=== PATIENT | female | born 1950 | race Caucasian/White ===

== ENCOUNTER 2022-05-31 01:16 | Inpatient (IN) | payer MEDICARE, OTHER ==
[2022-05-31] MEDS ORDERED: Aztreonam 1 GM in Sodium Chloride 0.9% 100 ML IVPB SCH (02:30)
[2022-05-31 02:58] LABS: Hemoglobin 11.8 g/dL (12.0-16.0); Mean Corpuscular HGB CONC 33.8 g/dL (32.0-36.0); Mean Corpuscular Hemoglobin 34.8 pg (27.0-31.0); RBC Distribution Width 11.5 % (11.5-14.5); Red Blood Cell (RBC) Count 3.39 mill/uL (4.20-5.40); White Blood Cell (WBC) Count 9.8 10x3/uL (4.8-10.8)
[2022-05-31] MEDS ORDERED: Morphine 2 MG/ML VIAL SLOW IVP PRN (02:59)
[2022-05-31] MEDS ORDERED: Dextrose 5% in Water 1,000 ML IV PRN (02:59)
[2022-05-31] MEDS ORDERED: Dextrose 50% Abboject 50 ML SYRINGE SLOW IVP PRN (02:59)
[2022-05-31] MEDS ORDERED: Ipratropium/Albuterol 3 ML NEB NEB PRN (02:59)
[2022-05-31] MEDS ORDERED: TETANUS, DIPHTHERIA TOX,ADULT (TDVAX) 0.5 ML VIAL IM ONE (02:59)
[2022-05-31] MEDS ORDERED: Ondansetron PF 4 MG/2 ML Vial IVP PRN (02:59)
[2022-05-31 03:07] LABS: PTT 24.7 sec (22.9-36.1); Prothrombin Time 13.6 sec (12.0-14.7)
[2022-05-31] MEDS ORDERED: Cyclobenzaprine 10 MG TAB PO PRN (03:11)
[2022-05-31 03:28] LABS: #Lymphocytes 1.1 thou/uL (1.20-3.40); #Monocytes 0.7 thou/uL (0.11-0.59); #Neutrophils 7.9 thou/uL (1.40-6.50); %Basophils 0.2 % (0.0-1.0); %Eosinophils 0.3 % (0.0-10.0); %Lymphocytes 11.7 % (21.0-51.0); %Monocytes 6.9 % (0.0-10.0); %Neutrophils 80.9 % (42.0-75.0); MDiff Complete? YES; Macrocytosis SLIGHT = 6-15 cells (100X) (0-5/hpf); Mean Platelet Volume 9.3 fL (7.4-10.4); Platelet Clumps MODERATE; Platelet Count 117 10x3/uL (130-400); Platelet Morphology Comment Appears Decreased
[2022-05-31 03:30] LABS: ALT (SGPT) 13 U/L (8-55); AST (SGOT) 20 U/L (5-34); Albumin 3.5 g/dL (3.4-4.8); Alkaline Phosphatase 73 U/L (40-110); Anion Gap 14 mmol/L (10-20); BUN (Urea Nitrogen) 18 mg/dL (9.8-20.1); Bilirubin, Total 0.4 mg/dL (0.2-1.2); Calc. Creatinine Clearance 0 mL/min (70-130); Calcium 8.8 mg/dL (7.8-10.44); Carbon Dioxide 22 mmol/L (23-31); Chloride 107 mmol/L (98-107); Estimated GFR 48; Globulin 2.5 g/dL (2.4-3.5); Glucose 161 mg/dL (83-110); Sodium 139 mmol/L (136-145)
[2022-05-31 05:48] VITALS: BMI 31.3
[2022-05-31] MEDS: Sodium Chloride 0.9% 1,000 ML IV SCH ×2 (05:55→16:22)
[2022-05-31] MEDS: Acetaminophen 500 MG TAB PO SCH ×3 (05:59→18:25)
[2022-05-31 06:29] LABS: SARS-CoV-2 NAA Rapid Test Not Detected (NotDetected)
[2022-05-31] MEDS ORDERED: Clindamycin/D5W 900 MG in Premix Bag 1 BAG IVPB SCH (07:30)
[2022-05-31] MEDS: Clindamycin/D5W 900 MG in Premix Bag 1 BAG IVPB SCH ×3 (08:45→20:54)
[2022-05-31] MEDS: Famotidine 20 MG TAB PO SCH (08:46)
[2022-05-31] MEDS ORDERED: traMADol HCl 50 MG TAB PO PRN (09:33)
[2022-05-31] MEDS ORDERED: Famotidine/PF 20 mg/2ml Vial ONE (12:51)
[2022-05-31] MEDS ORDERED: fentaNYL PF 100 MCG/2 ML SYRINGE ONE (12:51)
[2022-05-31] MEDS ORDERED: Midazolam HCl 2 mg/2 ml Vial ONE (13:06)
[2022-05-31] MEDS ORDERED: Ketamine 50 MG/ML (10ML VIAL) ONE (13:06)
[2022-05-31] MEDS: traMADol HCl 50 MG TAB PO SCH ×2 (13:12→18:25)
[2022-05-31] MEDS ORDERED: Clindamycin/D5W 900 mg/50 ml Premix Bag ONE (13:14)
[2022-05-31] MEDS ORDERED: Dexamethasone 20 MG/5 ML VIAL ONE (13:15)
[2022-05-31] MEDS ORDERED: Lidocaine 1% PF 5 ML VIAL ONE (13:15)
[2022-05-31] MEDS ORDERED: PROPOFOL 200 MG/20 ML VIAL ONE (13:15)
[2022-05-31] MEDS ORDERED: Metoclopramide HCl 10 MG/2 ML VIAL ONE (13:15)
[2022-05-31] MEDS ORDERED: Ondansetron PF 4 MG/2 ML Vial ONE (13:15)
[2022-05-31] MEDS ORDERED: ePHEDrine 50 MG/ML VIAL ONE (13:15)
[2022-05-31] MEDS ORDERED: SUGAMMADEX SODIUM 200 MG/2 ML VIAL ONE (14:42)
[2022-05-31] MEDS ORDERED: Fentanyl 250 MCG/5 ML VIAL ONE (14:43)
[2022-05-31] MEDS ORDERED: Morphine Sulfate 2 MG/ML SYRINGE SLOW IVP PRN (17:02)
[2022-05-31] MEDS ORDERED: Promethazine HCl 25 MG/ML VIAL IM PRN (17:02)
[2022-05-31] MEDS ORDERED: Meperidine HCl/PF 25 MG/ML VIAL SLOW IVP PRN (17:02)
[2022-05-31] MEDS ORDERED: Ondansetron HCl/PF 4 MG/2 ML Vial IVP PRN (17:02)
[2022-06-01] MEDS: Acetaminophen 500 MG TAB PO SCH ×3 (00:27→11:28)
[2022-06-01] MEDS: Famotidine 20 MG TAB PO SCH (00:27)
[2022-06-01] MEDS: traMADol HCl 50 MG TAB PO SCH ×4 (00:47→17:10)
[2022-06-01] MEDS: Clindamycin/D5W 900 MG in Premix Bag 1 BAG IVPB SCH (05:16)
[2022-06-01 09:39] LABS: #Neutrophils 4.9 thou/uL (1.40-6.50); %Eosinophils 0.1 % (0.0-10.0); %Lymphocytes 14.4 % (21.0-51.0); %Monocytes 14.9 % (0.0-10.0); %Neutrophils 70.5 % (42.0-75.0); Hemoglobin 7.8 g/dL (12.0-16.0); Mean Corpuscular Hemoglobin 34.5 pg (27.0-31.0); Mean Platelet Volume 9.8 fL (7.4-10.4); Platelet Count 51 10x3/uL (130-400); RBC Distribution Width 11.5 % (11.5-14.5); Red Blood Cell (RBC) Count 2.27 mill/uL (4.20-5.40); White Blood Cell (WBC) Count 6.9 10x3/uL (4.8-10.8)
[2022-06-01 09:42] LABS: Anion Gap 11 mmol/L (10-20); BUN (Urea Nitrogen) 12 mg/dL (9.8-20.1); Calc. Creatinine Clearance 110 mL/min (70-130); Calcium 7.9 mg/dL (7.8-10.44); Carbon Dioxide 24 mmol/L (23-31); Chloride 105 mmol/L (98-107); Estimated GFR 84; Glucose 125 mg/dL (83-110); Potassium 4.2 mmol/L (3.5-5.1); Sodium 136 mmol/L (136-145)
[2022-06-01] MEDS ORDERED: Acetaminophen 500 MG TAB PO SCH (17:00)
[2022-06-01] MEDS ORDERED: Acetaminophen 325 MG TAB PO SCH ×2 (17:00→22:30)
[2022-06-01] MEDS: Ferrous Sulfate 325 MG TAB PO SCH (17:04)
[2022-06-01] MEDS: Ascorbic Acid 500 mg Chewable Tablet PO SCH (22:38)
[2022-06-01] MEDS: Acetaminophen 325 MG TAB PO SCH (22:38)
[2022-06-02] MEDS: traMADol HCl 50 MG TAB PO SCH ×4 (01:06→17:04)
[2022-06-02] MEDS: Acetaminophen 325 MG TAB PO SCH ×6 (04:09→21:35)
[2022-06-02 06:32] LABS: #Lymphocytes 1.2 thou/uL (1.20-3.40); #Monocytes 0.9 thou/uL (0.11-0.59); #Neutrophils 5.6 thou/uL (1.40-6.50); %Basophils 0.1 % (0.0-1.0); %Eosinophils 0.4 % (0.0-10.0); %Lymphocytes 15.8 % (21.0-51.0); %Monocytes 11.8 % (0.0-10.0); %Neutrophils 71.8 % (42.0-75.0); Mean Corpuscular HGB CONC 33.6 g/dL (32.0-36.0); Mean Corpuscular Hemoglobin 34.9 pg (27.0-31.0); Platelet Count 86 10x3/uL (130-400); RBC Distribution Width 11.5 % (11.5-14.5); White Blood Cell (WBC) Count 7.8 10x3/uL (4.8-10.8)
[2022-06-02] MEDS: Ascorbic Acid 500 mg Chewable Tablet PO SCH ×2 (10:09→21:35)
[2022-06-02] MEDS: Ferrous Sulfate 325 MG TAB PO SCH ×2 (10:12→17:04)
[2022-06-03] MEDS: traMADol HCl 50 MG TAB PO SCH ×5 (01:29→23:49)
[2022-06-03] MEDS: Acetaminophen 325 MG TAB PO SCH ×6 (03:00→20:37)
[2022-06-03 06:58] LABS: #Eosinphils 0.1 thou/uL (0.0-0.7); #Lymphocytes 1.3 thou/uL (1.20-3.40); #Monocytes 0.9 thou/uL (0.11-0.59); #Neutrophils 6.2 thou/uL (1.40-6.50); %Basophils 0.1 % (0.0-1.0); %Eosinophils 0.8 % (0.0-10.0); %Lymphocytes 15.3 % (21.0-51.0); %Monocytes 10.9 % (0.0-10.0); %Neutrophils 72.9 % (42.0-75.0); Mean Corpuscular Hemoglobin 33.9 pg (27.0-31.0); Mean Platelet Volume 10.4 fL (7.4-10.4); Platelet Count 56 10x3/uL (130-400); RBC Distribution Width 11.3 % (11.5-14.5); Red Blood Cell (RBC) Count 2.07 mill/uL (4.20-5.40); White Blood Cell (WBC) Count 8.5 10x3/uL (4.8-10.8)
[2022-06-03 07:16] LABS: Anion Gap 11 mmol/L (10-20); BUN (Urea Nitrogen) 10 mg/dL (9.8-20.1); Calc. Creatinine Clearance 131 mL/min (70-130); Calcium 8.1 mg/dL (7.8-10.44); Carbon Dioxide 24 mmol/L (23-31); Chloride 99 mmol/L (98-107); Estimated GFR 94; Glucose 109 mg/dL (83-110); Magnesium 1.9 mg/dL (1.6-2.6); Phosphorus 2.3 mg/dL (2.3-4.7); Sodium 130 mmol/L (136-145)
[2022-06-03] MEDS: Ferrous Sulfate 325 MG TAB PO SCH ×2 (08:49→17:55)
[2022-06-03] MEDS: Ascorbic Acid 500 mg Chewable Tablet PO SCH ×2 (08:49→20:39)
[2022-06-04] MEDS: Acetaminophen 325 MG TAB PO SCH ×5 (04:01→18:13)
[2022-06-04] MEDS: traMADol HCl 50 MG TAB PO SCH ×3 (05:39→17:21)
[2022-06-04 06:59] LABS: #Eosinphils 0.1 thou/uL (0.0-0.7); #Lymphocytes 1.5 thou/uL (1.20-3.40); #Monocytes 0.7 thou/uL (0.11-0.59); %Basophils 0.3 % (0.0-1.0); %Eosinophils 1.6 % (0.0-10.0); %Monocytes 9.8 % (0.0-10.0); %Neutrophils 68.3 % (42.0-75.0); Hemoglobin 7.3 g/dL (12.0-16.0); Mean Corpuscular HGB CONC 34.2 g/dL (32.0-36.0); Mean Corpuscular Hemoglobin 35.2 pg (27.0-31.0); Mean Platelet Volume 10.8 fL (7.4-10.4); Platelet Count 77 10x3/uL (130-400); RBC Distribution Width 11.4 % (11.5-14.5); Red Blood Cell (RBC) Count 2.08 mill/uL (4.20-5.40); White Blood Cell (WBC) Count 7.4 10x3/uL (4.8-10.8)
[2022-06-04 07:05] LABS: Anion Gap 13 mmol/L (10-20); BUN (Urea Nitrogen) 11 mg/dL (9.8-20.1); Calc. Creatinine Clearance 133 mL/min (70-130); Calcium 8.1 mg/dL (7.8-10.44); Carbon Dioxide 23 mmol/L (23-31); Chloride 101 mmol/L (98-107); Estimated GFR 95; Glucose 106 mg/dL (83-110); Magnesium 1.9 mg/dL (1.6-2.6); Phosphorus 2.6 mg/dL (2.3-4.7); Potassium 3.9 mmol/L (3.5-5.1); Sodium 133 mmol/L (136-145)
[2022-06-04] MEDS: Ferrous Sulfate 325 MG TAB PO SCH ×2 (09:11→21:00)
[2022-06-04] MEDS: Ascorbic Acid 500 mg Chewable Tablet PO SCH ×2 (09:12→21:00)
[2022-06-05] MEDS: Acetaminophen 325 MG TAB PO SCH ×7 (00:49→22:42)
[2022-06-05] MEDS: traMADol HCl 50 MG TAB PO SCH ×5 (01:05→23:59)
[2022-06-05 06:49] LABS: #Eosinphils 0.2 thou/uL (0.0-0.7); #Lymphocytes 1.5 thou/uL (1.20-3.40); #Monocytes 0.6 thou/uL (0.11-0.59); #Neutrophils 4.1 thou/uL (1.40-6.50); %Basophils 0.3 % (0.0-1.0); %Eosinophils 2.4 % (0.0-10.0); %Lymphocytes 22.7 % (21.0-51.0); %Monocytes 10.1 % (0.0-10.0); %Neutrophils 64.5 % (42.0-75.0); Hemoglobin 7.3 g/dL (12.0-16.0); Mean Corpuscular HGB CONC 34.8 g/dL (32.0-36.0); Mean Corpuscular Hemoglobin 35.4 pg (27.0-31.0); Mean Platelet Volume 7.4 fL (7.4-10.4); Platelet Count 204 10x3/uL (130-400); RBC Distribution Width 11.5 % (11.5-14.5); Red Blood Cell (RBC) Count 2.07 mill/uL (4.20-5.40); White Blood Cell (WBC) Count 6.4 10x3/uL (4.8-10.8)
[2022-06-05] MEDS: Ferrous Sulfate 325 MG TAB PO SCH ×3 (07:07→21:05)
[2022-06-05 07:10] LABS: Anion Gap 10 mmol/L (10-20); BUN (Urea Nitrogen) 13 mg/dL (9.8-20.1); Calc. Creatinine Clearance 124 mL/min (70-130); Calcium 8.5 mg/dL (7.8-10.44); Carbon Dioxide 25 mmol/L (23-31); Chloride 101 mmol/L (98-107); Estimated GFR 93; Glucose 125 mg/dL (83-110); Magnesium 1.9 mg/dL (1.6-2.6); Potassium 3.7 mmol/L (3.5-5.1); Sodium 132 mmol/L (136-145)
[2022-06-05] MEDS: Ascorbic Acid 500 mg Chewable Tablet PO SCH ×2 (09:16→21:05)
[2022-06-05] MEDS: Scopolamine 1.5 mg/72 hour Patch TD SCH (12:39)
[2022-06-05] MEDS: Senokot S 8.6-50 MG TAB PO SCH (21:05)
[2022-06-06] MEDS: Acetaminophen 325 MG TAB PO SCH ×6 (03:30→23:28)
[2022-06-06] MEDS: traMADol HCl 50 MG TAB PO SCH ×4 (07:09→23:28)
[2022-06-06 07:22] LABS: Anion Gap 12 mmol/L (10-20); BUN (Urea Nitrogen) 12 mg/dL (9.8-20.1); Calc. Creatinine Clearance 132 mL/min (70-130); Calcium 8.6 mg/dL (7.8-10.44); Carbon Dioxide 23 mmol/L (23-31); Chloride 101 mmol/L (98-107); Estimated GFR 95; Glucose 107 mg/dL (83-110); Magnesium 1.9 mg/dL (1.6-2.6); Potassium 4.2 mmol/L (3.5-5.1); Sodium 132 mmol/L (136-145)
[2022-06-06 08:01] LABS: #Eosinphils 0.2 thou/uL (0.0-0.7); #Lymphocytes 1.6 thou/uL (1.20-3.40); #Monocytes 0.7 thou/uL (0.11-0.59); #Neutrophils 4.1 thou/uL (1.40-6.50); %Basophils 0.3 % (0.0-1.0); %Eosinophils 3.2 % (0.0-10.0); %Lymphocytes 24.4 % (21.0-51.0); %Monocytes 11.1 % (0.0-10.0); %Neutrophils 61.1 % (42.0-75.0); Hemoglobin 7.3 g/dL (12.0-16.0); MDiff Complete? YES; Mean Corpuscular HGB CONC 33.8 g/dL (32.0-36.0); Mean Corpuscular Hemoglobin 34.8 pg (27.0-31.0); Mean Platelet Volume 10.4 fL (7.4-10.4); Platelet Clumps MARKED; Platelet Morphology Comment PLT clumps seen-ADEQ; Polychromasia SLIGHT = 2-3 cells (100X) (0-2/hpf); RBC Distribution Width 12.2 % (11.5-14.5); Red Blood Cell (RBC) Count 2.09 mill/uL (4.20-5.40); White Blood Cell (WBC) Count 6.7 10x3/uL (4.8-10.8)
[2022-06-06] MEDS ORDERED: Magnesium 2 GM/50 ML(in water) 2 GM in Premix Bag 1 BAG IVPB SCH (08:45)
[2022-06-06] MEDS: Senokot S 8.6-50 MG TAB PO SCH ×2 (09:36→21:31)
[2022-06-06] MEDS: Ferrous Sulfate 325 MG TAB PO SCH ×3 (09:36→21:31)
[2022-06-06] MEDS: Ascorbic Acid 500 mg Chewable Tablet PO SCH ×3 (09:36→21:31)
[2022-06-06] MEDS: Polyethylene Glycol 3350 17 GM Packet PO SCH (09:36)
[2022-06-07] MEDS: Acetaminophen 325 MG TAB PO SCH ×3 (02:00→10:15)
[2022-06-07] MEDS: traMADol HCl 50 MG TAB PO SCH (05:03)
[2022-06-07] MEDS: Senokot S 8.6-50 MG TAB PO SCH ×2 (10:03→20:18)
[2022-06-07] MEDS: Ascorbic Acid 500 mg Chewable Tablet PO SCH ×2 (10:03→20:18)
[2022-06-07] MEDS: Apixaban 5 MG TAB PO SCH ×2 (10:03→20:18)
[2022-06-07] MEDS: Ferrous Sulfate 325 MG TAB PO SCH ×3 (10:04→20:18)
[2022-06-07] MEDS: Polyethylene Glycol 3350 17 GM Packet PO SCH (10:05)
[2022-06-07] MEDS ORDERED: Acetaminophen 325 MG TAB PO PRN (10:17)
[2022-06-08 07:12] LABS: #Eosinphils 0.3 thou/uL (0.0-0.7); #Lymphocytes 1.4 thou/uL (1.20-3.40); #Monocytes 0.7 thou/uL (0.11-0.59); #Neutrophils 3.7 thou/uL (1.40-6.50); %Basophils 0.3 % (0.0-1.0); %Eosinophils 4.7 % (0.0-10.0); %Lymphocytes 23.2 % (21.0-51.0); %Monocytes 12.1 % (0.0-10.0); %Neutrophils 59.8 % (42.0-75.0); Hemoglobin 7.3 g/dL (12.0-16.0); Mean Corpuscular HGB CONC 32.8 g/dL (32.0-36.0); Mean Corpuscular Hemoglobin 34.2 pg (27.0-31.0); Mean Platelet Volume 8.7 fL (7.4-10.4); Platelet Count 205 10x3/uL (130-400); RBC Distribution Width 12.7 % (11.5-14.5); Red Blood Cell (RBC) Count 2.12 mill/uL (4.20-5.40); White Blood Cell (WBC) Count 6.1 10x3/uL (4.8-10.8)
[2022-06-08] MEDS: Ferrous Sulfate 325 MG TAB PO SCH ×2 (09:23→20:58)
[2022-06-08] MEDS: Apixaban 5 MG TAB PO SCH ×2 (09:23→20:58)
[2022-06-08] MEDS: Polyethylene Glycol 3350 17 GM Packet PO SCH (09:23)
[2022-06-08] MEDS: Ascorbic Acid 500 mg Chewable Tablet PO SCH ×2 (09:23→20:58)
[2022-06-08] MEDS: Scopolamine 1.5 mg/72 hour Patch TD SCH (09:24)
[2022-06-08] MEDS: Senokot S 8.6-50 MG TAB PO SCH (09:24)
[2022-06-09] MEDS: Ascorbic Acid 500 mg Chewable Tablet PO SCH ×2 (10:19→21:49)
[2022-06-09] MEDS: Apixaban 5 MG TAB PO SCH ×2 (10:19→21:49)
[2022-06-09] MEDS: Ferrous Sulfate 325 MG TAB PO SCH ×2 (10:20→21:52)
[2022-06-10] MEDS: Apixaban 5 MG TAB PO SCH ×2 (10:02→21:19)
[2022-06-10] MEDS: Ascorbic Acid 500 mg Chewable Tablet PO SCH ×2 (10:02→21:21)
[2022-06-10] MEDS: Ferrous Sulfate 325 MG TAB PO SCH ×2 (10:03→21:20)
[2022-06-11] MEDS: Apixaban 5 MG TAB PO SCH ×2 (10:02→20:32)
[2022-06-11] MEDS: Ascorbic Acid 500 mg Chewable Tablet PO SCH ×2 (10:03→20:32)
[2022-06-11] MEDS: Ferrous Sulfate 325 MG TAB PO SCH ×3 (10:03→20:39)
[2022-06-11] MEDS ORDERED: Polyethylene Glycol 3350 17 GM Packet PO PRN (10:54)
[2022-06-11 11:24] LABS: #Eosinphils 0.2 thou/uL (0.0-0.7); #Lymphocytes 1.4 thou/uL (1.20-3.40); #Monocytes 0.6 thou/uL (0.11-0.59); #Neutrophils 4.4 thou/uL (1.40-6.50); %Basophils 0.3 % (0.0-1.0); %Eosinophils 2.8 % (0.0-10.0); %Lymphocytes 20.6 % (21.0-51.0); %Monocytes 8.8 % (0.0-10.0); %Neutrophils 67.5 % (42.0-75.0); Hemoglobin 8.2 g/dL (12.0-16.0); Mean Corpuscular HGB CONC 31.2 g/dL (32.0-36.0); Mean Corpuscular Hemoglobin 33.3 pg (27.0-31.0); Mean Platelet Volume 6.1 fL (7.4-10.4); Platelet Count 463 10x3/uL (130-400); RBC Distribution Width 14.2 % (11.5-14.5); Red Blood Cell (RBC) Count 2.47 mill/uL (4.20-5.40); White Blood Cell (WBC) Count 6.6 10x3/uL (4.8-10.8)
[2022-06-11] MEDS: Senokot S 8.6-50 MG TAB PO SCH (20:32)
[2022-06-12] MEDS: Ferrous Sulfate 325 MG TAB PO SCH (08:52)
[2022-06-12] MEDS: Apixaban 5 MG TAB PO SCH (08:52)
[2022-06-12] MEDS: Ascorbic Acid 500 mg Chewable Tablet PO SCH (08:52)
[2022-06-12] MEDS: Senokot S 8.6-50 MG TAB PO SCH (08:52)
[2022-06-12 17:13] VITALS: BP 116/68; TEMP 98.9
[2022-06-14] MEDS ORDERED: Apixaban 5 MG TAB PO SCH (09:00)
== END 2022-06-12 17:07 | DRG 481 ==
LOC: ERS 01:16 → IMCU/EMU 02:59 → SURG B 12:27
PROVIDERS: ADMIT Surgery; ATTEND Surgery
PROC: 0QHC36Z Insertion of Intramedullary Internal Fixation Device into Left Lower Femur, Percutaneous Approach (ICD-10-PCS; principal; 2022-05-31)
DX: S72.402B Unspecified fracture of lower end of left femur, initial encounter for open fracture type I or II (principal); D62 Acute posthemorrhagic anemia; E87.1 Hypo-osmolality and hyponatremia; I82.441 Acute embolism and thrombosis of right tibial vein; Z20.822 Contact with and (suspected) exposure to COVID-19; W18.30XA Fall on same level, unspecified, initial encounter; D69.6 Thrombocytopenia, unspecified; Z88.0 Allergy status to penicillin; Z88.1 Allergy status to other antibiotic agents; Z88.2 Allergy status to sulfonamides; Z88.6 Allergy status to analgesic agent; Z91.14 Patient's other noncompliance with medication regimen
CPT/HCPCS: 36415; 71045; 80048; 80053; 83735; 84100; 85025; 85610; 85730; 86850; 86900; 86901; 87811; 93005; C1713; G0390; J1100; J1650; J2250; J2405; J2704; J2765; J3010; J3475; J3490; J7050; S0028; U0002